=== PATIENT | female | born 1940 | race Caucasian/White ===

== ENCOUNTER → 2017-06-11 | Outpatient (CLI) | payer MEDICARE ==
--- NOTE | 2017-06-12 08:45 | MM ---
Reason for exam: screening (asymptomatic). Last mammogram was performed 1 year ago. History: Patient is postmenopausal. Benign excisional biopsy of the left breast, January 1971. Took estrogen for 9 years. Took progesterone for 9 years. Physical Findings: A clinical breast exam by your physician is recommended on an annual basis and results should be correlated with mammographic findings. MG 3D Screening Mammo W/Cad Bilateral CC and MLO view(s) were taken. Prior study comparison: June 08, 2016, bilateral MG 3d screening mammo w/cad. July 30, 2015, right breast MG 3d work up w/cad RT. There are scattered fibroglandular densities. There are typically benign calcifications. Previous mammotome biopsy in the right breast. No significant changes when compared with prior studies. ASSESSMENT: Benign, BI-RAD 2 RECOMMENDATION: Routine screening mammogram of both breasts in 1 year.
== END | disposition home or self-care (01) ==
LOC: RADMAMWWP 08:00
PROVIDERS: ATTEND Obstetrics & Gynecology
DX: Z12.31 Encounter for screening mammogram for malignant neoplasm of breast (principal)
CPT/HCPCS: 77063; G0202

== ENCOUNTER → 2018-06-12 | Outpatient (CLI) | payer MEDICARE ==
--- NOTE | 2018-06-13 12:54 | MM ---
Reason for exam: screening (asymptomatic). Last mammogram was performed 1 year ago. History: Patient is postmenopausal. Benign excisional biopsy of the left breast, January 1971. Took estrogen for 9 years. Took progesterone for 9 years. Physical Findings: A clinical breast exam by your physician is recommended on an annual basis and results should be correlated with mammographic findings. MG 3D Screening Mammo W/Cad Bilateral CC and MLO view(s) were taken. Prior study comparison: June 11, 2017, bilateral MG 3d screening mammo w/cad. June 08, 2016, bilateral MG 3d screening mammo w/cad. The breast tissue is heterogeneously dense. This may lower the sensitivity of mammography. Benign appearing bilateral calcifications. No suspicious abnormality. No significant changes when compared with prior studies. ASSESSMENT: Benign, BI-RAD 2 RECOMMENDATION: Routine screening mammogram of both breasts in 1 year.
== END ==
LOC: RADMAMWWP 07:41
PROVIDERS: ATTEND Obstetrics & Gynecology
DX: Z12.31 Encounter for screening mammogram for malignant neoplasm of breast (principal)
CPT/HCPCS: 77063; 77067

== ENCOUNTER → 2019-02-14 | Outpatient (CLI) | payer MEDICARE ==
--- NOTE | 2019-02-14 11:16 | CT ---
EXAMINATION TYPE: CT soft tissue neck w con DATE OF EXAM: 02/14/2019 9:52 AM COMPARISON: Unavailable HISTORY: rt side neck mass CT DLP: 359 mGycm Automated exposure control for dose reduction was used. CONTRAST: CT scan of the neck is performed following with IV Contrast, patient injected with 100 mL of Isovue 3 00. Axial images are obtained, coronal and sagittal reformatted images are reviewed. FINDINGS: There is a focus of dense enhancement at the level of the posterior aspect of the carotid a rtery causing some mass effect deflecting the right internal carotid artery anteriorly at the level o f C1-2. The mass measures 2.1 x 2 x 2.7 cm. Airway: No gross abnormality seen. Parotid/submandibular glands: No gross abnormality seen. Carotid/Vascular Structures: Carotid arteries, internal jugular veins are patent. Osseous Structures: Degenerative disc changes are mild Other: Lung apices are unremarkable. 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
== END | disposition home or self-care (01) ==
LOC: RADCTMAIN 07:51
PROVIDERS: ATTEND Urology
DX: R22.1 Localized swelling, mass and lump, neck (principal)
CPT/HCPCS: 82565; 84520; 70491; 36415; Q9967

== ENCOUNTER → 2019-03-20 | Outpatient (CLI) | payer MEDICARE ==
--- NOTE | 2019-03-20 09:35 | MR ---
EXAMINATION TYPE: MR neck wo/w con DATE OF EXAM: 03/20/2019 COMPARISON: Outside MRI August 01, 2018 HISTORY: Paraganglioma rt side neck CONTRAST: Standard multiplanar, multisequence MRI departmental protocol utilizing 6 mL intravenous Gadavist leoncio olinium contrast. FINDINGS: There is redemonstration of oval mass between right internal carotid artery and internal ju gular vein shows posterior to the masseter muscle at level of the maxilla of T1 slight hypointensity and T2 slight hyperintensity without fat saturation and heterogeneous postcontrast enhancement measur ing 1.6 x 1.6 cm axial image by are approximately 2.5 cm coronal image 10. There is possible smaller lesion on the left axial image 32 not significantly changed in size from prior study with less promin ent T2 signal and no enhancement. Parotid gland is lateral to both masses which are along the anterio r depth of the parotid glands. No obvious new mass or adenopathy. Visualized sinuses remain clear. Visualized upper lungs are clear osseous structures are intact. No new adenopathy is present. Airway remains patent. 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
== END | disposition home or self-care (01) ==
LOC: RADMRIMAIN 07:36
PROVIDERS: ATTEND Otolaryngology
DX: R22.1 Localized swelling, mass and lump, neck (principal)
CPT/HCPCS: 70543; A9585

== ENCOUNTER → 2019-03-21 | Outpatient (CLI) | payer MEDICARE ==
[2019-03-21 08:44] LABS: Calcium 9.9 mg/dL (8.4-10.2); Potassium 4.4 mmol/L (3.5-5.1)
--- NOTE | 2019-03-21 09:36 | CT ---
EXAMINATION TYPE: CT chest wo/w con DATE OF EXAM: 03/21/2019 COMPARISON: None HISTORY: Paraganglioma, occlusion and stenosis CT DLP: 662 mGycm Automated exposure control for dose reduction was used. CONTRAST: CT scan of the chest is performed without and with IV Contrast, patient injected with 100 ml mL of Is ovue 300. FINDINGS: LUNGS: The lungs are grossly clear, there is no concerning parenchymal mass or nodule identified. S cattered basilar parenchymal changes noted. There is no pleural effusion or pneumothorax seen. The t racheobronchial tree is patent. MEDIASTINUM: There are no greater than 1 cm hilar or mediastinal lymph nodes. No pericardial effusi on is seen. Thoracic aorta is of normal caliber. The heart is not enlarged. UPPER ABDOMEN: Fatty liver noted. Renal cystic changes identified. OTHER: No additional significant abnormality is seen. IMPRESSION: 1. No evidence for mass. 2. Scattered basilar parenchymal changes.
--- NOTE | 2019-03-21 09:47 | US ---
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 EXAM MEASUREMENTS: RIGHT: Peak Systolic Velocity (PSV) cm/sec ----- Right CCA: 81.6 ----- Right ICA: 96.4 ----- Right ECA: 96.6 ICA/CCA ratio: 1.2 RIGHT: End Diastole cm/sec ----- Right CCA: 24.8 ----- Right ICA: 33.3 ----- Right ECA: 15.0 LEFT: Peak Systolic Velocity (PSV) cm/sec ----- Left CCA: 63.0 ----- Left ICA: 81.1 ----- Left ECA: 86.3 ICA/CCA ratio: 1.3 LEFT: End Diastole cm/sec ----- Left CCA: 22.8 ----- Left ICA: 267 ----- Left ECA: 8.6 VERTEBRALS (direction of flow): Right Vertebral: Antegrade Left Vertebral: Antegrade Rhythm: Normal Heterogenous mass near the right common carotid artery measures 1.4 x 0.8 cm. Differences in size in comparison to the prior MRI neck where this measured 1.6 x 1.6 cm can be attributed to differences in technique and better visualization on MRI. Images are incorrectly labeled common femoral vein and sh ould be labeled common carotid artery. The probable left mass seen on the prior MRI is not seen sonog raphically. IMPRESSION: 1. No sonographically evident hemodynamically significant stenosis within either visualized carotid a rterial system. 2. The right paraganglioma and questionable left paraganglioma image better seen on the MR neck dated 03/20/2019. The left is not seen on today's examination and the right mass measures smaller in size, related to differences in technique rather than decreasing size. Criteria for Assigning % of Stenosis / Diameter reduction (Estimation based on the indirect measurements of the internal carotid artery velocities (ICA PSV). 1. Normal (no stenosis)=ICA PSV < 125 cm/s: ratio < 2.0: ICA EDV<40 cm/s. 2. Less than 50% stenosis=ICA PSV < 125 cm/s: ratio < 2.0: ICA EDV<40 cm/s. 3. 50 to 69% stenosis=ICA PSV of 125 to 230 cm/s: ration 2.0 ? 4.0: ICA EDV 40-100 cm/s. 4. Greater than 70% stenosis to near occlusion= ICA PSV > 230 cm/s: ratio > 4.0: ICA EDV > 100 cm/s. 5. Near occlusion= ICA PSV velocities may be low or undetectable: variable ratio and ICA EDV. 6. Total occlusion=unable to detect flow.
== END | disposition home or self-care (01) ==
LOC: RADCTMAIN 07:40
PROVIDERS: ATTEND Otolaryngology
DX: D48.1 Neoplasm of uncertain behavior of connective and other soft tissue (principal); R91.8 Other nonspecific abnormal finding of lung field
CPT/HCPCS: 83835; 80048; 93880; 71270; 36415; Q9967

== ENCOUNTER → 2019-06-13 | Outpatient (CLI) | payer MEDICARE ==
--- NOTE | 2019-06-16 13:37 | MM ---
Reason for exam: screening (asymptomatic). Last mammogram was performed 1 year ago. History: Patient is postmenopausal. Benign excisional biopsy of the left breast, January 1971. Took estrogen for 9 years. Took progesterone for 9 years. Physical Findings: A clinical breast exam by your physician is recommended on an annual basis and results should be correlated with mammographic findings. MG 3D Screening Mammo W/Cad Bilateral CC and MLO view(s) were taken. Prior study comparison: June 12, 2018, bilateral MG 3d screening mammo w/cad. June 11, 2017, bilateral MG 3d screening mammo w/cad. The breast tissue is heterogeneously dense. This may lower the sensitivity of mammography. Focal asymmetry left upper inner quadrant, middle position, stable. No significant changes when compared with prior studies. ASSESSMENT: Benign, BI-RAD 2 RECOMMENDATION: Routine screening mammogram of both breasts in 1 year.
== END | disposition home or self-care (01) ==
LOC: RADMAMWWP 07:50
PROVIDERS: ATTEND Obstetrics & Gynecology
DX: Z12.31 Encounter for screening mammogram for malignant neoplasm of breast (principal)
CPT/HCPCS: 77063; 77067

== ENCOUNTER → 2020-03-12 | Outpatient (CLI) | payer MEDICARE ==
--- NOTE | 2020-03-13 00:07 | MR ---
EXAMINATION TYPE: MR neck wo/w con DATE OF EXAM: 03/12/2020 COMPARISON: 03/20/2019 HISTORY: F/U paragaglioma rt side neck CONTRAST: Standard multiplanar, multisequence MRI departmental protocol utilizing 5.5 mL intravenous Gadavist g adolinium contrast. There is a 2 cm rounded enhancing mass in the right side parapharyngeal soft tissues posterior to the masseter muscle and adjacent to the carotid artery and jugular vein. The parotid glands are symmetri c. Submandibular salivary glands are symmetric. There is 12 mm rounded area of enhancement in the ant erior triangle of the neck on the left side. This is at the C4 level and has similar enhancement madonna natalia and precontrast T1 appearance. Visualized thoracic spinal cord appears normal. There is no cervical spinal stenosis. Visualized brai n appears intact. There is mild cerebral atrophy. IMPRESSION: Bilateral neck masses appear unchanged in size and enhancement pattern compared to previous exam and are consistent with paraganglioma. No increasing neck mass compared to old exam.
== END | disposition home or self-care (01) ==
LOC: RADMRIMAIN 16:15
PROVIDERS: ATTEND Otolaryngology
DX: R22.1 Localized swelling, mass and lump, neck (principal); D48.7 Neoplasm of uncertain behavior of other specified sites
CPT/HCPCS: 70543; A9585

== ENCOUNTER → 2020-05-18 | Outpatient (CLI) | payer MEDICARE ==
--- NOTE | 2020-05-18 10:13 | MM ---
Reason for exam: clinical finding. Last mammogram was performed 11 months ago. History: Patient is postmenopausal. Benign excisional biopsy of the left breast, January 1971. Took estrogen for 9 years. Took progesterone for 9 years. Physical Findings: Nurse Summary: 1.5cm nodule in the left breast at 12 o'clock (nurse dw). MG 3D Diag Mammo W/Cad EWELINA Bilateral CC and MLO view(s) were taken. Prior study comparison: June 13, 2019, bilateral MG 3d screening mammo w/cad. June 12, 2018, bilateral MG 3d screening mammo w/cad. The breast tissue is heterogeneously dense. This may lower the sensitivity of mammography. Finding: There is a new heterogeneous, grouped/clustered calcifications in the 12 o'clock posterior position of the right breast at 6 o'clock. New finding since June 13, 2019 and June 12, 2018. These results were verbally communicated with the patient and result sheet given to the patient on 05/18/20. ASSESSMENT: Incomplete: need additional imaging evaluation, BI-RAD 0 RECOMMENDATION: Ultrasound of the left breast. (palpable) Stereotactic core biopsy of the right breast. (right breast calcifications) Called Dr. Sandoval's office with mammographic findings and has scheduled an appointment for the patient for 06/17/20 at 8:[address] Nicholson. Biopsy scheduled for 06/02/20 at 7:00. PRELIMINARY REPORT CALLED AND FAXED TO DR. NICHOLSON ON 05/18/20.
--- NOTE | 2020-05-18 10:29 | USB ---
Reason for exam: additional evaluation requested from abnormal screening. History: Patient is postmenopausal. Benign excisional biopsy of the left breast, January 1971. Took estrogen for 9 years. Took progesterone for 9 years. US Breast Limited LT Left limited breast ultrasound including focal area of concern, retroareolar and axilla demonstrates a 1.5 x 1.0 x 1.8cm irregular, taller than wide, solid, hypoechoic, vascular lesion at the posterior nipple BB, a 0.9cm and 0.8cm suspicious, abnormal lymph nodes at the axilla tail. These results were verbally communicated with the patient and result sheet given to the patient on 05/18/20. ASSESSMENT: Suspicious, BI-RAD 4 RECOMMENDATION: Ultrasound core biopsy of the left breast. (subareolar, consider ultrasound biopsy left axillary node) (stereotactic core biopsy, right breast calcifications) Called Dr. Sandoval's office with mammographic findings and has scheduled an appointment for the patient for 06/17/20 at 8:[address] Nicholson. Biopsy scheduled for 06/02/20 at 7:00. PRELIMINARY REPORT CALLED AND FAXED TO DR. NICHOLSON ON 05/18/20.
== END | disposition home or self-care (01) ==
LOC: RADMAMWWP 07:25
PROVIDERS: ATTEND Obstetrics & Gynecology
DX: N63.20 Unspecified lump in the left breast, unspecified quadrant (principal); N63.10 Unspecified lump in the right breast, unspecified quadrant
CPT/HCPCS: 77066; 76642; G0279; 77062

== ENCOUNTER → 2020-06-02 | Day surgery (SDC) | payer MEDICARE ==
[2020-06-02 07:20] VITALS: RESP 16; TEMP 98.6
[2020-06-02 09:42] VITALS: BP 131/68; PULSE 84
--- NOTE | 2020-06-02 09:45 | USB ---
EXAMINATION TYPE: US biopsy breast VAD LT, US biopsy breast add'l VAD LT, MG diagnostic mammo LT wo C AD DATE OF EXAM: 06/02/2020 CLINICAL HISTORY: R92.8 ABN MAMMO. TECHNIQUE: Ultrasound guided core biopsy of left breast 2 sites. COMPARISON: NONE FINDINGS: The procedure of ultrasound guided core biopsy was explained to the patient. Benefits, alt ernatives, and risks were discussed. An informed consent was then obtained. The patient was placed in supine positioning for imaging and for the procedure. The overlying skin w as prepped and draped in usual sterile fashion. Lidocaine buffered with bicarbonate was used as anes thetic into the skin and subcutaneous tissue up to area of concern in the left retroareolar breast. A dditionally left axillary lesion was localized sonographically. Under ultrasound guidance, a 12-gauge vacuum assisted biopsy gun device was used to obtain 4 core ulz ples from retroareolar lesion. In addition to severe sonographic and axillary nodule/lymph node. Fol lowing this, a biopsy clip was placed within each lesion. Postprocedural mammogram demonstrates appro priate appointment. The patient tolerated the procedure well without any immediate complication. The patient was kept in the radiology department for short stay after the procedure and then discharged home in stable condi tion. IMPRESSION: Successful, uncomplicated ultrasound guided core biopsy of areas of concern in the left b reast 2 sites, full pathology results to follow.
--- NOTE | 2020-06-02 12:25 | MM ---
Stereotactic Mammotome core biopsy right breast. HISTORY: Microcalcifications The calcifications in question within the right breast were targeted by the undersigned. Procedure w as performed by the undersigned. Informed consent was obtained and all of the patients questions were answered. The standard sterile technique was utilized and appropriate local anesthesia was obtained with 1% licocaine. Mammotome probe was advanced and multiple core samples were obtained and sent to pathology for interpretation. Microclip marker was deployed at the site of biopsy. Post procedural mammogram demonstrates appropriate deployment of radiopaque clip marker. The patient tolerated the procedure well and left the department in stable condition. Pathology results are pending. IMPRESSION: Successful stereotactic core biopsy right breast with pathology results pending.
== END ==
LOC: RADUSWWP 06:54
PROVIDERS: ATTEND Surgery
DX: C50.012 Malignant neoplasm of nipple and areola, left female breast (principal); C77.3 Secondary and unspecified malignant neoplasm of axilla and upper limb lymph nodes; N60.11 Diffuse cystic mastopathy of right breast; N60.21 Fibroadenosis of right breast; N60.81 Other benign mammary dysplasias of right breast; N60.91 Unspecified benign mammary dysplasia of right breast; Z17.0 Estrogen receptor positive status [ER+]
CPT/HCPCS: 88305; 88342; 88341; 77065; 19081; 19083; 19084; A4648 ×2; J2001

== ENCOUNTER → 2020-08-30 | Outpatient (CLI) | payer MEDICARE ==
--- NOTE | 2020-08-30 13:22 | BD ---
EXAMINATION TYPE: Axial Bone Density DATE OF EXAM: 08/30/2020 COMPARISON: 01/26/2005 CLINICAL HISTORY: 80-year-old female postmenopausal screening Height: 5 FT 1/2 IN Weight: 121 FRAX RISK QUESTIONS: Alcohol (3 or more units per day): NO Family History (Parent hip fracture): MAYBE Glucocorticoids (More than 3mos): NO (Ex: prednisone, prednisolone, methylprednisolone, dexamethasone, and hydrocortisone). History of Fracture in Adulthood: NO Secondary Osteoporosis: 1. Type 1 Diabetes: NO 2. Hyperthyroidism: NO 3. Menopause before 45: NO 4. Malnutrition: NO 5. Chronic liver disease: NO Rheumatoid Arthritis: NO Current Tobacco Use: NO RISK FACTORS HISTORY OF: Family History of Osteoporosis: YES Active: YES Diet low in dairy products/other sources of calcium: NO Postmenopausal woman: AGE 52 Take estrogen and/or progesterone medications: SHE BELIEVES SHE DID FOR APPROX 10 YEARS Lost more than 2 inches in height since high school: NO MEDICATIONS: Thyroid Medications: YES Which medication: LEVOTHYROXINE How Long: APPROX, 20 YEARS Additional Medications: FLOVENT DAILY, LEVOTHYROXINE, SINGULAIR, AMLODIPINE,CRESTOR, FEMARA, ASPIRIN, D3, ALBUTEROL NEEDED , DOSE PACK NEEDED, NASAL SPRAY Additional History: BREAST CANCER 2020 ESTROGEN DYLAN ONLY , ADULT ONSET ASTHMA EXAM MEASUREMENTS: Bone mineral densitometry was performed using the [employer] System. Bone mineral density as measured about the Lumbar spine is: ----- L1-L4(G/cm2): 1.197 T Score Values are as follows: ----- L2: -0.6 ----- L3: 1.0 ----- L4: 1.0 ----- L1-L4: 0.1 Bone mineral density has: INCREASED 14.6 % since study of: 2004 Bone mineral density about the R hip (g/cm2): 0.698 Bone mineral density about the L hip (g/cm2): 0.689 T Score values are as follows: -----R Neck: -2.4 -----L Neck: -2.5 -----R Total: -2.4 -----L Total: -2.1 Bone mineral density has: DECREASED -11.5 % since study of: 2004 IMPRESSION: Osteoporosis (T Score less than -2.5). There is increased fracture risk and therapy is usually indicated based on age. Re-Screen 1-2 years. NOTE: T-SCORE=SD OF THE YOUNG ADULT MEAN.
== END | disposition home or self-care (01) ==
LOC: RADBDWWP 08:16
PROVIDERS: ATTEND Internal Medicine Hematology & Oncology
DX: M81.0 Age-related osteoporosis without current pathological fracture (principal); C50.112 Malignant neoplasm of central portion of left female breast; Z79.890 Hormone replacement therapy; Z88.1 Allergy status to other antibiotic agents; Z88.2 Allergy status to sulfonamides; Z88.5 Allergy status to narcotic agent
CPT/HCPCS: 77080

== ENCOUNTER → 2021-09-14 | Outpatient (CLI) | payer MEDICARE ==
--- NOTE | 2021-09-15 15:53 | MR ---
MRI neck with and without contrast HISTORY: paraganglomas bilaterally, R 22.1 Multiplanar multisequence and postcontrast images obtained through the neck following 5.5 cc Gadavist IV Correlation to prior MR neck 03/12/2020 and 03/20/2019, CT neck 02/14/2019, MRI from outside institution 08/01/2018 The right-sided mass near the base of the skull, deep to the right mandible body, posterior to the pt erygoid musculature and just lateral and posterior to the right internal carotid artery shows increas ed signal on STIR, intense enhancement on contrast administration, is T2 bright focus of mixed news internship al low signal, slightly increased signal on T1-weighted images and is similar in size measuring 2.8 c entimeters in cephalad to caudal dimension by 2.3 cm in AP dimension by 2.4 cm in transverse dimensio n. Left-sided mass at the same level does not show the hyperintensity on inversion recovery or T2-moody ghted sequences noted the enhancement and measures 2.3 cm in cephalad to caudal dimension and not as well-defined in the axial plane but similar in appearance. No evident local adenopathy. Salivary glands show symmetric appearance. No additional abnormal signal . Focus of increased signal in the cerebellum posteriorly on the right on inversion recovery and T2-w eighted sequences is unchanged. There may be an area of focal encephalomalacia. IMPRESSION: There may be some slight interval growth compared to prior exam although there are differ ences in imaging technique. CT scan with contrast may be of improved spatial resolution to assess for true measurements.
== END | disposition home or self-care (01) ==
LOC: RADMRIMAIN 11:46
PROVIDERS: ATTEND Otolaryngology
DX: R22.0 Localized swelling, mass and lump, head (principal)
CPT/HCPCS: 70543; A9585

== ENCOUNTER → 2022-02-28 | Outpatient (CLI) | payer MEDICARE ==
[2022-02-28 11:09] LABS: African American GFR (CKD) 66.7 (60.0-200.0); Blood Urea Nitrogen 16.9 mg/dL (9.0-27.0); Non-African American GFR(CKD) 57.6 (60.0-200.0)
--- NOTE | 2022-02-28 14:49 | MR ---
MR neck without and with contrast HISTORY: R 22.1 Multiplanar multisequence and postcontrast images obtained through the neck, correlation to prior MR neck 09/14/2021, 03/20/2019 The abnormal signal in the right neck shows a similar appearance at the level between the internal ca rotid artery and right jugular vein, hyperintense on T1 and T2-weighted sequences with some probable vascular flow voids, lesion measures 3.2 cm in cephalad to caudal dimension by 2.6 cm in transverse b y 2.1 cm in AP dimension, similar to prior exam accounting for differences in technique. No additiona l lesion noted on the left. Enhancement following contrast administration is again noted. Some enceph alomalacia noted the inferior aspect of the right cerebellar hemisphere. There is motion on the exam. IMPRESSION: Findings are similar to prior exam as described.
== END | disposition home or self-care (01) ==
LOC: RADMRIMAIN 07:52
PROVIDERS: ATTEND Otolaryngology
DX: G93.89 Other specified disorders of brain (principal); Z92.3 Personal history of irradiation; Z90.12 Acquired absence of left breast and nipple; J39.0 Retropharyngeal and parapharyngeal abscess
CPT/HCPCS: 82565; 84520; 70543; A9585

== ENCOUNTER → 2023-01-03 | Outpatient (CLI) | payer MEDICARE ==
--- NOTE | 2023-01-03 09:30 | BD ---
EXAMINATION TYPE: Axial Bone Density DATE OF EXAM: 01/03/2023 CLINICAL HISTORY: 82 years old Female. 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 History of Fracture in Adulthood: no Secondary Osteoporosis: 1. Type 1 Diabetes: no 2. Hyperthyroidism: no 3. Menopause before 45: no 4. Malnutrition: no 5. Chronic liver disease: no Rheumatoid Arthritis: no Current Tobacco Use: no RISK FACTORS HISTORY OF: Surgery to Spine/Hip(right/left)/Wrist (right/left): no Family History of Osteoporosis: yes Active: yes Diet low in dairy products/other sources of calcium: no Postmenopausal woman: yes Lost more than 2 inches in height since high school: no MEDICATIONS: levothyroxine-20 years Additional History: EXAM MEASUREMENTS: Bone mineral densitometry was performed using the [employer] System. Bone mineral density as measured about the Lumbar spine is: ----- L1-L4(G/cm2): 1.169 T Score Values are as follows: ----- L1: -1.7 ----- L2: -0.5 ----- L3: 0.9 ----- L4: 0.6 ----- L1-L4: -0.1 Z Score Values are as follows: ----- L1: 0.4 ----- L2: 1.7 ----- L3: 3.1 ----- L4: 2.8 ----- L1-L4: 2.1 Bone mineral density has: decreased -2.3 % since study of: 08.30.2020 Bone mineral density about the R hip (g/cm2): 0.715 Bone mineral density about the L hip (g/cm2): 0.716 T Score values are as follows: -----R Neck: -2.3 -----L Neck: -2.5 -----R Total: -2.3 -----L Total: -2.3 Z Score values are as follows: -----R Neck: 0.1 -----L Neck: -0.1 -----R Total: 0.0 -----L Total: 0.0 Bone mineral density has: decreased -1.8 % since study of: 1.4.2020 FRAX%s: The graph provided illustrates a 19.4% chance for a major osteoporotic fx and a 7.1% chance f or the hips probability for fx in 10 years time. IMPRESSION: Osteopenia (T Score between -2.5 and -1). There is slightly increased risk of fracture and the patient may be considered for treatment. Re-Screen 2-5 years. NOTE: T-SCORE=SD OF THE YOUNG ADULT MEAN.
== END | disposition home or self-care (01) ==
LOC: RADBDWWP 07:43
PROVIDERS: ATTEND Internal Medicine Hematology & Oncology
DX: C50.112 Malignant neoplasm of central portion of left female breast (principal); M85.89 Other specified disorders of bone density and structure, multiple sites; M81.0 Age-related osteoporosis without current pathological fracture; Z79.890 Hormone replacement therapy
CPT/HCPCS: 77080

== ENCOUNTER → 2023-03-10 | Outpatient (CLI) | payer MEDICARE ==
--- NOTE | 2023-03-10 11:07 | MR ---
EXAMINATION TYPE: MR neck wo/w con DATE OF EXAM: 03/10/2023 9:01 AM COMPARISON: Multiple priors most recent MRI 02/28/2022. CLINICAL INDICATION:Female, 82 years old with history of R22.1 LOCALIZED SWELLING, MASS AND LUMP, NEC K; Follow-up comparison to prior MRI 02-28-22, paraganglioma. TECHNIQUE: Multi planar, multi sequence imaging was performed of the neck soft tissues. MR contrast: IV Contrast: 5.5 cc Gadavist FINDINGS: Right carotid space lesion measuring 2.2 x 2.3 cm which is primarily high T2 signal and low er T1 signal. There is some internal vascular flow voids present. No new or enhancing lesions identif ied. There is somewhat homogenous postcontrast enhancement with flow voids present. The glottis appears unremarkable. Several nonenlarged anterior chain lymph nodes are identified. The cervical vertebral bodies have preserved heights and alignment. Multilevel disc desiccation and anterior osteophytosis are present. The cervical spinal cord demonstrates a normal appearance. IMPRESSION: Stable right carotid space lesion which is measuring up to 2.3 x 2.3 cm, previously up to 1.9 cm on . Findings favor appear ganglia,.
== END | disposition home or self-care (01) ==
LOC: RADMRIMAIN 08:00
PROVIDERS: ATTEND Otolaryngology
DX: R22.1 Localized swelling, mass and lump, neck (principal)
CPT/HCPCS: 70543; A9585

== ENCOUNTER → 2024-01-15 | Outpatient (CLI) | payer MEDICARE ==
--- NOTE | 2024-01-22 19:07 | MR ---
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 COMPARISON: None. TECHNIQUE: Multi planar, multi sequence imaging was performed of the neck soft tissues. MR contrast: IV Contrast: 5.5 cc Gadavist FINDINGS: Right carotid space lesion measuring 2.3 x 2.1 cm which is stable given differences in yessenia uring technique. Lesion is high T2 signal with single curvilinear areas of lower T1 signal. There is some internal vascular flow voids present. No new or enhancing lesions identified. There is somewhat homogenous postcontrast enhancement with flow voids present. The glottis appears unremarkable. Several nonenlarged anterior chain lymph nodes are identified. The cervical vertebral bodies have preserved heights and alignment. Multilevel disc desiccation and anterior osteophytosis are present. The cervical spinal cord demonstrates a normal appearance. IMPRESSION: Stable right carotid space lesion which is measuring 2.3 x 2.1 cm, previously up to 1.9 cm on 03/12/20. 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
== END | disposition home or self-care (01) ==
LOC: RADMRIMAIN 07:52
PROVIDERS: ATTEND Otolaryngology
DX: D44.7 Neoplasm of uncertain behavior of aortic body and other paraganglia (principal)
CPT/HCPCS: 70543; A9585

== ENCOUNTER → 2025-01-05 | Outpatient (CLI) | payer MEDICARE ==
--- NOTE | 2025-01-05 10:39 | BD ---
EXAMINATION TYPE: Axial Bone Density DATE OF EXAM: 01/05/2025 CLINICAL HISTORY: 84 years old Female. ICD-10 CODE: M81.0 AGE-RELATED OSTEOPOROSIS W/O CURRENT PATHO LOGY , Additional History: Height: 60 Weight: 120 FRAX RISK QUESTIONS: Secondary Osteoporosis: RISK FACTORS HISTORY OF: MEDICATIONS: Thyroid Medications: Which medication: Levothyroxine How Lon+ years EXAM MEASUREMENTS: Bone mineral densitometry was performed using the [employer] System. Bone mineral density as measured about the Lumbar spine is: ----- L1-L4(G/cm2): 1.165 T Score Values are as follows: ----- L1: -1.4 ----- L2: -1.0 ----- L3: 0.8 ----- L4: 0.3 ----- L1-L4: -0.1 Z Score Values are as follows: ----- L1: 0.8 ----- L2: 1.2 ----- L3: 3.1 ----- L4: 2.5 ----- L1-L4: 2.1 Bone mineral density has: Decreased -0.3% since study of: 01-03-23 Bone mineral density about the R hip (g/cm2): 0.678 Bone mineral density about the L hip (g/cm2): 0.741 T Score values are as follows: -----R Neck: -2.6 -----L Neck: -2.5 -----R Total: -2.6 -----L Total: -2.1 Z Score values are as follows: -----R Neck: -0.1 -----L Neck: 0.0 -----R Total: -0.2 -----L Total: 0.3 Bone mineral density has: Decreased -0.8% since study of: 01-03-23 FRAX%s: The graph provided illustrates a 19.8% chance for a major osteoporotic fx and a 7.6% chance f or the hips probability for fx in 10 years time. IMPRESSION: Osteoporosis (T Score less than -2.5) in the left hip is now present. There is increased fracture risk and therapy is usually indicated based on age. Re-Screen 1-2 years. NOTE: T-SCORE=SD OF THE YOUNG ADULT MEAN. [facility], , 01/05/2025 10:36 AM
== END | disposition home or self-care (01) ==
LOC: RADBDWWP 09:48
PROVIDERS: ATTEND Internal Medicine Hematology & Oncology
DX: M81.0 Age-related osteoporosis without current pathological fracture (principal); C50.112 Malignant neoplasm of central portion of left female breast; G61.0 Guillain-Barre syndrome; J45.909 Unspecified asthma, uncomplicated
CPT/HCPCS: 77080

== ENCOUNTER → 2025-01-13 | Outpatient (CLI) | payer MEDICARE ==
--- NOTE | 2025-01-13 21:07 | MR ---
EXAMINATION TYPE: MR neck wo/w con DATE OF EXAM: 01/13/2025 9:35 AM COMPARISON: Priors dating back to 03/20/2019.. 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 IV Contrast: 5 mL Gadobutrol FINDINGS: Redemonstration of right carotid space lesion measuring 3.2 x 2.9 x 2.1 cm CC, TV, AP, all that different from prior differences in slice selection and technique. When comparing to multiple pr iors including 03/20/2019 measuring 2.7 x 1.8 x 2.1 cm. Lesion is high T2 signal with single curviline ar areas of lower T1 signal. There is some internal vascular flow voids present. No new or enhancing lesions identified. There is somewhat homogenous postcontrast enhancement with flow voids present. The glottis appears unremarkable. Several nonenlarged anterior chain lymph nodes are identified. The cervical vertebral bodies have preserved heights and alignment. Multilevel disc desiccation and anterior osteophytosis are present. The cervical spinal cord demonstrates a normal appearance. IMPRESSION: Redemonstration of stable right carotid space lesion 3.2 x 2.9 x 2.1 cm CC, TV, AP and 2.7 x 1.8 x 2. 1 cm on 03/20/2019. 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 [facility], , 01/13/2025 9:05 PM
== END | disposition home or self-care (01) ==
LOC: RADMRIMAIN 08:37
PROVIDERS: ATTEND Otolaryngology
DX: D44.7 Neoplasm of uncertain behavior of aortic body and other paraganglia (principal)
CPT/HCPCS: 70543; A9585